=== PATIENT | female | born 1970 | race Caucasian/White ===

== ENCOUNTER 2016-08-23 20:27 | Emergency (ER) | payer MEDICAID ==
[~2016-08-23] VITALS: Ht 162.6 cm; Wt 80.7 kg
[2016-08-23 20:31] VITALS: BP_SYST 147
--- NOTE | 2016-08-23 20:44 | NUR ---
Pt ambulatory to bed 5. Report given to BECKA Payan.
--- NOTE | 2016-08-23 20:45 | NUR ---
Pt in bed 5 with c/o leg pain and abdominal pain and chest pain .Dr Shook aware.
--- NOTE | 2016-08-23 20:48 | NUR ---
ER at bedside examining patient.
[2016-08-23 21:21] LABS: BASOPHILS % (AUTO) 0.3 % (0.0-2.0); EOSINOPHILS # (AUTO) 0.2 K/uL (0.0-0.4); EOSINOPHILS % (AUTO) 4.3 % (0.0-4.0); HEMATOCRIT 39.6 % (36-48); HEMOGLOBIN 13.2 g/dL (12.0-16.0); LYMPHOCYTES # (AUTO) 2.8 K/uL (1.0-5.5); LYMPHOCYTES % (AUTO) 47.4 % (20.5-51.5); MEAN CORPUSCULAR HEMOGLOBIN 32 pg (27-31); MEAN CORPUSCULAR HGB CONC 33 % (32-36); MEAN CORPUSCULAR VOLUME 96 fL (79.0-98.0); MONOCYTES # (AUTO) 0.4 K/uL (0.0-1.0); NEUTROPHILS # (AUTO) 2.3 K/uL (1.8-7.7); PLATELET COUNT (AUTO) 199 K/uL (130-430); RED BLOOD CELL COUNT(AUTO) 4.14 MIL/uL (4.2-6.2); RED CELL DISTRIBUTION WIDTH 12.2 % (9.0-15.0); WHITE BLOOD COUNT (AUTO) 5.7 K/uL (4.8-10.8)
[2016-08-23 21:27] LABS: CALCIUM 8.8 mg/dL (8.4-11.0); CREATININE 1.03 mg/dL (0.55-1.30); POTASSIUM 3.5 mmol/L (3.5-5.1)
[2016-08-23 21:31] LABS: INR 0.9 (0.8-1.2); PROTHROMBIN TIME 10.1 SECS (9.5-12.5)
[2016-08-23 21:32] LABS: TOTAL BILIRUBIN 0.2 mg/dL (0.0-1.0); TOTAL PROTEIN, SERUM 7.6 g/dL (6.4-8.3)
[2016-08-23] MEDS ORDERED: HYDROcodone/ACETAMIN 5-325 MG TAB (NORCO/ VICODIN) PO ONE (22:15)
--- NOTE | 2016-08-23 22:19 | NUR ---
Ultrasound in progress at bedside.
--- NOTE | 2016-08-23 23:00 | NUR ---
Patient given written and verbal discharge instructions and verbalizes understanding. ER MD discussed with patient the results and treatment provided. Given copies of tests performed in ER. Patient in stable condition. ID arm band removed. Rx of k-dur,lasix given. Patient educated on pain management and to follow up with PMD. Pain Scale 0/10. Opportunity for questions provided and answered.
[2016-08-23 23:51] VITALS: BP_SYST 137
== END 2016-08-23 23:00 | disposition home or self-care (01) ==
LOC: SED 20:27
DX: I87.2 Venous insufficiency (chronic) (peripheral) (principal); I25.2 Old myocardial infarction; Z86.73 Personal history of transient ischemic attack (TIA), and cerebral infarction without residual deficits; Z88.1 Allergy status to other antibiotic agents; Z88.6 Allergy status to analgesic agent; Z88.8 Allergy status to other drugs, medicaments and biological substances
CPT/HCPCS: 36415; 71010; 80053; 83880; 84484; 85025; 85610-TC; 85730-TC; 93005; 93971; 99285